=== PATIENT | male | born 1965 | race Caucasian/White ===

== ENCOUNTER 2020-09-21 14:30 | Observation (INO) | payer BC ==
--- NOTE | 2020-09-21 14:54 | RAD REPORT ---
EXAM DESCRIPTION: CT - Ct Stroke Brain Wo Cont - 09/21/2020 2:47 pm CLINICAL HISTORY: NUMBNESS, left-sided weakness, left-sided facial droop COMPARISON: No comparisons TECHNIQUE: Axial 5 millimeter thick images of the head were obtained without IV contrast. All CT scans are performed using dose optimization technique as appropriate and may include automated exposure control or mA/KV adjustment according to patient size. FINDINGS: No intracranial hemorrhage, mass, or cerebral edema. No acute cortical based infarction id entified. No cortical edema or sulcal effacement. Patient has no measurable atrophy or chronic ischem ic change. Ventricles are normal. No extra-axial fluid collections. Yin matter-white matter differe ntiation is preserved. Visualized portions of the mastoid air cells, paranasal sinuses, and orbits are unremarkable. Findings telephoned to Dr. King 2:49 p.m. IMPRESSION: No CT evidence of acute intracranial process. Ongoing concerns for acute CVA can be further addressed with MR imaging.
[2020-09-21 15:18] LABS: Hematocrit 42.3 % (39.6-49.0); Lymphocytes % 16.9 % (15.3-44.8); MPV 9.2 fL (7.6-11.3); RBC Red Blood Cell Count 4.69 M/uL (4.33-5.43)
[2020-09-21] MEDS ORDERED: ALTEPLASE 100 ML IV ONE (15:28)
[2020-09-21 15:30] LABS: Protime INR 0.84
[2020-09-21 15:33] LABS: Potassium 4.4 mmol/L (3.5-5.1)
--- NOTE | 2020-09-21 16:10 | ER ---
Nurse's Notes [facility] Name: Abhay Smith Age: 55 yrs Sex: Male : 1965 Arrival Date: 09/21/2020 Time: 14:31 Bed 7 Private MD: Diagnosis: Acute cerebrovascular insufficiency;Acute CVA Presentation: 09/21 14:37 Chief complaint: Patient states: Numbness of L arm and L side of face. Onset at 1200 ca1 today. Coronavirus screen: Client denies travel out of the [place] in the last 14 days. At this time, the client does not indicate any symptoms associated with coronavirus-19. Ebola Screen: Patient negative for fever greater than or equal to 101.5 degrees Fahrenheit, and additional compatible Ebola Virus Disease symptoms Patient denies exposure to infectious person. Patient denies travel to an Ebola-affected area in the 21 days before illness onset. No symptoms or risks identified at this time. No acute neurological deficit is noted. The patients blood glucose was checked before arriving to the hospital and was found to be normal. Initial Sepsis Screen: Does the patient meet any 2 criteria? No. Patient's initial sepsis screen is negative. Does the patient have a suspected source of infection? No. Patient's initial sepsis screen is negative. Risk Assessment: Do you want to hurt yourself or someone else? Patient reports no desire to harm self or others. Onset of symptoms was September 21, 2020 at 12:00. 14:37 Acuity: MARIBEL 2 ca1 14:37 Method Of Arrival: Wheelchair ca1 Triage Assessment: 15:00 The onset of the patients symptoms was September 21, 2020 at 12:00. General: Appears in no ca1 apparent distress. comfortable, Behavior is calm, cooperative, appropriate for age. Pain: Denies pain. EENT: No signs and/or symptoms were reported regarding the EENT system. Neuro: Level of Consciousness is awake, alert, obeys commands, Oriented to person, place, time, situation, Director Of Music Therapy are equal bilaterally Moves all extremities. Gait is steady, Speech is normal, Facial symmetry appears normal, Numbness in L side of face. Neuro: Reports numbness in left arm. Cardiovascular: Heart tones S1 S2 present Capillary refill < 3 seconds Patient's skin is warm and dry. Rhythm is sinus rhythm. 15:00 Respiratory: Airway is patent Respiratory effort is even, unlabored, Respiratory ca1 pattern is regular, symmetrical, Breath sounds are clear bilaterally. GI: Abdomen is round non-distended, Bowel sounds present X 4 quads. Abd is soft and non tender X 4 quads. : No signs and/or symptoms were reported regarding the genitourinary system. Derm: Skin is intact, is healthy with good turgor, Skin is pink, warm \T\ dry. Musculoskeletal: Circulation, motion, and sensation intact. Capillary refill < 3 seconds. Stroke Activation: Symptom onset < 3 hours Physician: Stroke Attending; Name: ; Notified At: ; Arrived At: Physician: Chief Stroke Resident; Name: ; Notified At: ; Arrived At: Physician: Stroke Resident; Name: ; Notified At: ; Arrived At: Physician: ED Attending; Name: ; Notified At: ; Arrived At: Physician: ED Resident; Name: ; Notified At: ; Arrived At: Historical: - Allergies: 15:49 PENICILLINS; em - Home Meds: 15:49 metformin 1,000 mg Oral tab 1 tab 2 times per day [Active]; lisinopril 20 mg Oral tab 1 em tab once daily [Active]; amlodipine 5 mg tab 1 tab once daily [Active]; metoprolol succinate 50 mg oral Tb24 1 tab once daily [Active]; simvastatin 80 mg Oral tab [Active]; glimepiride 4 mg Oral tab 1 tab once daily [Active]; pregabalin 150 mg Oral 1 cap 2 times per day [Active]; clopidogrel 75 mg oral tab 1 tab once daily [Active]; gabapentin 600 mg oral tab [Active]; isosorbide mononitrate 30 mg Oral Tb24 2 tabs once daily [Active]; Chantix 0.5 mg oral tab [Active]; aspirin 325 mg Oral TbEC 1 tab once daily [Active]; - PMHx: 15:49 Hypertension; Diabetes - NIDDM; Hyperlipidemia; em - PSHx: 15:49 Angioplasty; em - Immunization history:: Client reports receiving the 2nd dose of the Covid vaccine, Client reports receiving the 1st dose of the Covid vaccine, Pneumococcal vaccine is up to date, Flu vaccine is up to date. - Social history:: Smoking status: Patient reports the use of cigarette tobacco products, smokes one-half pack cigarettes per day. Screenin:15 Abuse screen: Denies threats or abuse. Denies injuries from another. Nutritional ca1 screening: No deficits noted. Tuberculosis screening: No symptoms or risk factors identified. Fall Risk IV access (20 points). Assessment: 14:37 Reassessment: PT wheeled to CT via wheelchair. ca1 14:55 VAN Scoring: Arm Drift: Patients demonstrates NO arm weakness. Patient is VAN Negative. ca1 15:00 Reassessment: pt signed consent form. em 15:05 T-PA (Activase) Screening: Indications: Definite evidence of stroke, ischemic, embolic, em or hypertensive: Yes. Treatment will start within 4.5 hours onset of symptoms: Yes. No evidence of intracranial hemorrhage or CT of head and no evidence of peripheral hemorrhage or recent CVA: Yes. Consent for thrombolytic therapy: Yes. 15:06 Patient has been NPO before screening. The patient is alert, and able to follow ca1 commands. The patient does not exhibit slurred or garbled speech. The patient is not exhibiting difficulty speaking. The patient does not exhibit difficulty understanding words. The patient is able to swallow own secretions with no drooling or need for suction. Patient tolerated one teaspoon of water. No drooling, immediate coughing, gurgling, or clearing of the throat was noted. The patient tolerated 90mL of water. No drooling, immediate coughing, gurgling, or clearing of the throat was noted. The patient passed the bedside swallow screening. Oral medications may be given as ordered. Contact Physician for further diet orders. Provider notified of bedside swallow screening results: Joel King MD. 15:10 General: Appears in no apparent distress. comfortable, Behavior is calm, cooperative. em Pain: Denies pain. Neuro: Level of Consciousness is awake, alert, obeys commands, Oriented to person, place, time, situation, Appropriate for age Director Of Music Therapy are equal bilaterally Moves all extremities. Gait is steady, Speech is normal, Facial symmetry appears normal, Numbness in left jaw and left arm Denies weakness dizziness, headache. Cardiovascular: Capillary refill < 3 seconds Patient's skin is warm and dry. Rhythm is sinus rhythm. Respiratory: Airway is patent Respiratory effort is even, unlabored, Respiratory pattern is regular, symmetrical. GI: Patient currently denies nausea, vomiting. Derm: Skin is intact, is healthy with good turgor, Skin is pink, warm \T\ dry. Musculoskeletal: Capillary refill < 3 seconds, Range of motion: intact in all extremities. 15:50 Reassessment: reports numbness in fingers and lips is getting better, provider at em bedside. 17:01 Reassessment: pt ambulated to the restroom with steady gait. em 17:04 Reassessment: hospitalist at bedside. em 17:50 Reassessment: Patient appears in no apparent distress at this time. Patient and/or em family updated on plan of care and expected duration. Pain level reassessed. denies any numbness or tingling in face or arms Patient states symptoms have improved. 18:50 Reassessment: Patient appears in no apparent distress at this time. Patient and/or em family updated on plan of care and expected duration. Pain level reassessed. Patient is alert, oriented x 3, equal unlabored respirations, skin warm/dry/pink. Vital Signs: 14:49 BP 177 / 89; Pulse 79; Resp 16 S; Pulse Ox 100% on R/A; ca1 15:06 Weight 126.1 kg; em 15:20 BP 144 / 85; Pulse 79; Resp 18; Pulse Ox 99% on R/A; em 16:20 BP 148 / 90; Pulse 85; Resp 18; Pulse Ox 99% on R/A; em 17:05 BP 154 / 81; Pulse 78; Resp 16; Pulse Ox 97% on R/A; em 17:50 BP 176 / 91; Pulse 81; Resp 18; Temp 97.8; Pulse Ox 99% on R/A; em 18:50 BP 131 / 82; Pulse 79; Resp 16; Pulse Ox 98% on R/A; em NIH Stroke Scale Scores: 15:10 NIHSS Score: 2 em 15:50 NIHSS Score: 1 em 16:17 NIHSS Score: 3 tw4 ED Course: 14:31 Patient arrived in ED. ds1 14:37 Arm band placed on right wrist. ca1 14:38 Deniz Hazel, YESSENIA is Primary Nurse. em 14:44 Joel King MD is Attending Physician. tw4 14:47 CT Stroke Brain w/o Contrast In Process Unspecified. EDMS 14:47 Patient has correct armband on for positive identification. Placed in gown. Bed in low ca1 position. Call light in reach. Side rails up X2. 14:47 cardiac monitor technician on. Pulse ox on. NIBP on. Warm blanket given. ca1 14:55 Missed attempt(s): 20 gauge in right forearm. Bleeding controlled, band aid applied, ca1 catheter tip intact. 14:57 Inserted saline lock: 22 gauge in right hand, using aseptic technique. ,using aseptic ca1 technique. by YESSENIA Guaman Blood collected. 15:00 Inserted saline lock: 22 gauge in left antecubital area, using aseptic technique. ca1 15:28 Triage completed. ca1 15:33 No provider procedures requiring assistance completed. ca1 15:46 Stroke CXR 1 View In Process Unspecified. EDMS 16:09 Nick Pineda is Hospitalizing Provider. tw4 19:30 Patient admitted, IV remains in place. ad5 Administered Medications: 15:23 Drug: ACTIvase (alteplase) {Co-Signature: ca1 (Sahra Kelsey RN).} Route: IV em Thrombolytics; Rate: calculated rate; Infused Over: 60 mins; 16:28 Follow up: Response: No adverse reaction em Point of Care Testing: Blood Glucose: 14:47 Blood Glucose: 378 mg/dL; ca1 Ranges: Outcome: 16:10 Decision to Hospitalize by Provider. tw4 19:30 Admitted to ER Hold. Please see [email or web address] for further documentation. ad5 19:30 Condition: stable 19:30 Instructed on the need for admit, Demonstrated understanding of instructions. 0603 15:22 Patient left the ED. em NIH Stroke Scale - NIH Stroke Score Date: 09/21/2020 Time: 15:10 Total Score = 2 1a. Level of Consciousness (LOC) - 0(Alert) 1b. Level of Consciousness (LOC) (Year \T\ Age) - 0(Both) 1c. LOC Commands (Open \T\ Closes Eyes/Pick Up Operator) - 0(Both) 2. Best Gaze (Lateral Gaze Paresis) - 0(Normal) 3. Visual Field Loss - 0(No visual loss) 4. Facial Palsy - 0(Normal) 5a. Left Arm: Motor (10-second hold) - 0(No drift) 5b. Right Arm: Motor (10-second hold) - 0(No drift) 6a. Left Leg: Motor (5-second hold - always test supine) - 1(Drift) 6b. Right Leg: Motor (5-second hold - always test supine) - 0(No drift) 7. Limb Ataxia (finger/nose \T\ heel/quinn - test with eyes open) - 0(Absent) 8. Sensory Loss (pinprick arms/legs/face) - 1(Mild to moderate loss) 9. Best Language: Aphasia (description/naming/reading) - 0(No aphasia) 10. Dysarthria (speech clarity - read or repeat words) - 0(Normal) 11. Extinction and Inattention (visual/tactile/auditory/spatial/personal) - 0(No abnormality) Initials: NIH Stroke Scale - NIH Stroke Score Date: 09/21/2020 Time: 15:50 Total Score = 1 1a. Level of Consciousness (LOC) - 0(Alert) 1b. Level of Consciousness (LOC) (Year \T\ Age) - 0(Both) 1c. LOC Commands (Open \T\ Closes Eyes/Pick Up Operator) - 0(Both) 2. Best Gaze (Lateral Gaze Paresis) - 0(Normal) 3. Visual Field Loss - 0(No visual loss) 4. Facial Palsy - 0(Normal) 5a. Left Arm: Motor (10-second hold) - 0(No drift) 5b. Right Arm: Motor (10-second hold) - 0(No drift) 6a. Left Leg: Motor (5-second hold - always test supine) - 0(No drift) 6b. Right Leg: Motor (5-second hold - always test supine) - 0(No drift) 7. Limb Ataxia (finger/nose \T\ heel/quinn - test with eyes open) - 0(Absent) 8. Sensory Loss (pinprick arms/legs/face) - 1(Mild to moderate loss) 9. Best Language: Aphasia (description/naming/reading) - 0(No aphasia) 10. Dysarthria (speech clarity - read or repeat words) - 0(Normal) 11. Extinction and Inattention (visual/tactile/auditory/spatial/personal) - 0(No abnormality) Initials: NIH Stroke Scale - NIH Stroke Score Date: 09/21/2020 Time: 16:17 Total Score = 3 1a. Level of Consciousness (LOC) - 0(Alert) 1b. Level of Consciousness (LOC) (Year \T\ Age) - 0(Both) 1c. LOC Commands (Open \T\ Closes Eyes/Pick Up Operator) - 0(Both) 2. Best Gaze (Lateral Gaze Paresis) - 0(Normal) 3. Visual Field Loss - 0(No visual loss) 4. Facial Palsy - 0(Normal) 5a. Left Arm: Motor (10-second hold) - 0(No drift) 5b. Right Arm: Motor (10-second hold) - 0(No drift) 6a. Left Leg: Motor (5-second hold - always test supine) - 2(Drift, some effort against gravity) 6b. Right Leg: Motor (5-second hold - always test supine) - 0(No drift) 7. Limb Ataxia (finger/nose \T\ heel/quinn - test with eyes open) - 0(Absent) 8. Sensory Loss (pinprick arms/legs/face) - 1(Mild to moderate loss) 9. Best Language: Aphasia (description/naming/reading) - 0(No aphasia) 10. Dysarthria (speech clarity - read or repeat words) - 0(Normal) 11. Extinction and Inattention (visual/tactile/auditory/spatial/personal) - 0(No abnormality) Initials: tw4 Signatures: Dispatcher [employer] EDDeniz Benton RN RN em Kiana Gtz ds1 Joel King MD MD tw4 Sahra Kelsey RN RN ca1 Dany Oliveira RN ca1 Corrections: (The following items were deleted from the chart) 0602 15:32 15:30 BP 177 / 89; Pulse 79bpm; Resp 16bpm; Spontaneous; Pulse Ox 100% RA; ca1 ca1 15:49 15:28 Allergies: No Known Allergies; ca1 em
--- NOTE | 2020-09-21 16:10 | EDPHYS ---
Physician Documentation [facility] Name: Abhay Smith Age: 55 yrs Sex: Male : 1965 Arrival Date: 09/21/2020 Time: 14:31 Bed 7 Private MD: ED Physician Joel King HPI: 09/21 16:16 This 55 yrs old Male presents to ER via Wheelchair with complaints of tw4 Numbness - L Side. 16:16 The patient's problem is reported as paresthesias, in left upper extremity, in left tw4 lower extremity. Onset: The symptoms/episode began/occurred today. Duration: This was a single incident. Context: the episode(s) was witnessed, by no one. The symptoms are alleviated by nothing. The symptoms are aggravated by nothing. Associated signs and symptoms: The patient has no apparent associated signs or symptoms. Severity of symptoms: At their worst the symptoms were moderate in the emergency department the symptoms are unchanged. The patient has not experienced similar symptoms in the past. 16:17 Onset: The symptoms/episode began/occurred 2 hour(s) ago. Patient's baseline: Neuro: tw4 alert and fully oriented, Motor: no deficits, Ambulation: walks without assistance, Speech: normal. Historical: - Allergies: 15:49 PENICILLINS; em - Home Meds: 15:49 metformin 1,000 mg Oral tab 1 tab 2 times per day [Active]; lisinopril 20 mg Oral tab 1 em tab once daily [Active]; amlodipine 5 mg tab 1 tab once daily [Active]; metoprolol succinate 50 mg oral Tb24 1 tab once daily [Active]; simvastatin 80 mg Oral tab [Active]; glimepiride 4 mg Oral tab 1 tab once daily [Active]; pregabalin 150 mg Oral 1 cap 2 times per day [Active]; clopidogrel 75 mg oral tab 1 tab once daily [Active]; gabapentin 600 mg oral tab [Active]; isosorbide mononitrate 30 mg Oral Tb24 2 tabs once daily [Active]; Chantix 0.5 mg oral tab [Active]; aspirin 325 mg Oral TbEC 1 tab once daily [Active]; - PMHx: 15:49 Hypertension; Diabetes - NIDDM; Hyperlipidemia; em - PSHx: 15:49 Angioplasty; em - Immunization history:: Client reports receiving the 2nd dose of the Covid vaccine, Client reports receiving the 1st dose of the Covid vaccine, Pneumococcal vaccine is up to date, Flu vaccine is up to date. - Social history:: Smoking status: Patient reports the use of cigarette tobacco products, smokes one-half pack cigarettes per day. ROS: 16:16 Constitutional: Negative for fever, chills, and weight loss. tw4 Exam: 16:17 Radiologist reports: no acute changes tw4 16:17 Constitutional: This is a well developed, well nourished patient who is awake, alert, and in no acute distress. Head/Face: Normocephalic, atraumatic. Neck: Trachea midline, no thyromegaly or masses palpated, and no cervical lymphadenopathy. Supple, full range of motion without nuchal rigidity, or vertebral point tenderness. No Meningismus. Chest/axilla: Normal chest wall appearance and motion. Nontender with no deformity. No lesions are appreciated. Cardiovascular: Regular rate and rhythm with a normal S1 and S2. No gallops, murmurs, or rubs. Normal PMI, no JVD. No pulse deficits. Respiratory: Lungs have equal breath sounds bilaterally, clear to auscultation and percussion. No rales, rhonchi or wheezes noted. No increased work of breathing, no retractions or nasal flaring. Abdomen/GI: Soft, non-tender, with normal bowel sounds. No distension or tympany. No guarding or rebound. No evidence of tenderness throughout. Back: No spinal tenderness. No costovertebral tenderness. Full range of motion. Skin: Warm, dry with normal turgor. Normal color with no rashes, no lesions, and no evidence of cellulitis. MS/ Extremity: Pulses equal, no cyanosis. Neurovascular intact. Full, normal range of motion. 16:17 Neuro: Orientation: is normal, Mentation: is normal, Memory: is normal, Cerebellar function: is grossly normal, Motor: is normal, Sensation: numbness, that is moderate, of the face and left arm, Gait: is steady. Vital Signs: 14:49 BP 177 / 89; Pulse 79; Resp 16 S; Pulse Ox 100% on R/A; ca1 15:06 Weight 126.1 kg; em 15:20 BP 144 / 85; Pulse 79; Resp 18; Pulse Ox 99% on R/A; em 16:20 BP 148 / 90; Pulse 85; Resp 18; Pulse Ox 99% on R/A; em 17:05 BP 154 / 81; Pulse 78; Resp 16; Pulse Ox 97% on R/A; em 17:50 BP 176 / 91; Pulse 81; Resp 18; Temp 97.8; Pulse Ox 99% on R/A; em 18:50 BP 131 / 82; Pulse 79; Resp 16; Pulse Ox 98% on R/A; em NIH Stroke Scale Scores: 15:10 NIHSS Score: 2 em 15:50 NIHSS Score: 1 em 16:17 NIHSS Score: 3 tw4 MDM: 14:44 Patient medically screened. tw4 16:20 Differential diagnosis: CVA, TIA, metabolic disorder, drug effects. Data reviewed: tw4 vital signs, nurses notes. Data interpreted: Pulse oximetry: Interpretation: normal. Test interpretation: by ED physician or midlevel provider: plain radiologic studies. Counseling: I had a detailed discussion with the patient and/or guardian regarding: the historical points, exam findings, and any diagnostic results supporting the discharge/admit diagnosis, lab results, radiology results. Physician consultation: Nick Pineda regarding admission, to the telemetry unit. patient's condition, and will see patient. 09/21 14:39 Order name: Basic Metabolic Panel em1 09/21 14:39 Order name: CBC with Diff em1 09/21 14:39 Order name: Protime (+inr) em1 09/21 14:39 Order name: Ptt, Activated em1 09/21 15:17 Order name: Glucose, Ancillary Testing EDKS 09/21 16:48 Order name: Vitamin B12 Level EDKS 09/21 16:48 Order name: Basic Metabolic Panel EDKS 09/21 16:48 Order name: Basic Metabolic Panel EDKS 09/21 16:48 Order name: Folic Acid, (Folate) EDKS 09/21 16:48 Order name: RPR EDKS 09/21 16:48 Order name: Vitamin D, 25 (OH), TOTAL EDKS 09/21 16:48 Order name: CBC with Automated Diff EDMS 09/21 16:48 Order name: CBC with Automated Diff EDMS 09/21 16:48 Order name: Protime (+INR) EDKS 09/21 16:48 Order name: Protime (+INR) EDMS 09/21 16:48 Order name: Protime (+INR) EDMS 09/21 16:48 Order name: Protime (+INR) EDMS 09/21 16:48 Order name: Protime (+INR) EDMS 09/21 16:48 Order name: Protime (+INR) EDMS 09/21 16:48 Order name: Anti-Thrombin III Activity EDMS 09/21 16:48 Order name: C-ANCA Anti-Proteinase 3 EDMS 09/21 16:48 Order name: Cardiolipin Antibodies G,M EDMS 09/21 16:48 Order name: Factor V Leiden Mutation EDMS 09/21 16:48 Order name: Homocysteine EDMS 09/21 16:48 Order name: Miscellaneous Test Lab EDMS 09/21 14:39 Order name: CT Stroke Brain w/o Contrast em1 09/21 14:39 Order name: Stroke CXR 1 View em1 09/21 14:39 Order name: EKG; Complete Time: 14:40 em1 09/21 14:39 Order name: Accucheck; Complete Time: 15:33 em1 09/21 14:39 Order name: EKG; Complete Time: 14:40 em 09/21 16:47 Order name: NPO EDMS 09/21 16:48 Order name: Physical Therapy Consult EDMS 09/21 16:48 Order name: NPO EDMS 09/21 16:48 Order name: NPO EDMS 09/21 16:48 Order name: Echo with Doppler EDMS 09/21 16:48 Order name: EKG Electrocardiogram EDMS 09/21 16:48 Order name: P-ANCA Anti-Myeloperoxidase Ab EDMS 09/21 16:48 Order name: Protein C Antigen EDMS 09/21 16:48 Order name: Protein Electo w/M Justino Serum EDMS 09/21 16:48 Order name: Protein S (Total EDMS 09/21 16:48 Order name: PROTHROMBIN GENE ANALYSIS (F2) EDMS 09/21 16:49 Order name: Speech Therapy Consult EDMS 09/21 17:04 Order name: Diet Regular; Complete Time: 17:04 em 09/21 17:43 Order name: SARS-COV-2 RT PCR EDMS 09/21 17:49 Order name: Brain Wo Cont EDMS 09/21 22:01 Order name: Glucose, Ancillary Testing EDMS 09/21 23:40 Order name: Glucose, Ancillary Testing EDMS 09/22 01:51 Order name: Glucose, Ancillary Testing EDMS 09/22 07:31 Order name: Hemoglobin A1c EDMS 09/22 07:58 Order name: Glucose, Ancillary Testing EDMS 09/22 11:51 Order name: Glucose, Ancillary Testing EDMS 09/22 13:46 Order name: CT EDMS 09/21 14:39 Order name: Cardiac monitoring; Complete Time: 15:33 em1 09/21 14:39 Order name: EKG - Nurse/Tech; Complete Time: 15:33 em1 09/21 14:39 Order name: IV Saline Lock; Complete Time: 15:34 em1 09/21 14:39 Order name: Labs collected and sent; Complete Time: 15:34 em1 09/21 14:39 Order name: NPO; Complete Time: 15:34 em1 09/21 14:39 Order name: O2 Per Protocol; Complete Time: 15:34 em1 09/21 14:39 Order name: O2 Sat Monitoring; Complete Time: 15:34 em1 09/21 14:39 Order name: Stroke Swallow Screen; Complete Time: 15:33 em1 09/21 14:39 Order name: Accucheck; Complete Time: 15:13 em 09/21 14:39 Order name: Cardiac monitoring; Complete Time: 15:13 em 09/21 14:39 Order name: EKG - Nurse/Tech; Complete Time: 15:13 em 09/21 14:39 Order name: IV Saline Lock; Complete Time: 15:13 em 09/21 14:39 Order name: Labs collected and sent; Complete Time: 15:13 em 09/21 14:39 Order name: NPO; Complete Time: 15:13 em 09/21 14:39 Order name: O2 Per Protocol; Complete Time: 15:13 em 09/21 14:39 Order name: O2 Sat Monitoring; Complete Time: 15:13 em 09/21 14:39 Order name: Stroke Swallow Screen; Complete Time: 15:13 em Administered Medications: 15:23 Drug: ACTIvase (alteplase) {Co-Signature: ca1 (Sahra Kelsey RN).} Route: IV em Thrombolytics; Rate: calculated rate; Infused Over: 60 mins; 16:28 Follow up: Response: No adverse reaction em Point of Care Testing: Blood Glucose: 14:47 Blood Glucose: 378 mg/dL; ca1 Ranges: Critical Glucose Levels:Adult <50 mg/dl or >400 mg/dl <40 mg/dl or >180 mg/dl Disposition: 09/21/20 16:10 Hospitalization ordered by Nick Pineda for Inpatient Admission. Preliminary diagnosis are Acute cerebrovascular insufficiency, Acute CVA. - Bed requested for [facility] ER HOLD. - Status is Inpatient Admission. em - Condition is Stable. - Problem is new. - Symptoms have improved. NIH Stroke Scale - NIH Stroke Score Date: 09/21/2020 Time: 15:10 Total Score = 2 1a. Level of Consciousness (LOC) - 0(Alert) 1b. Level of Consciousness (LOC) (Year \T\ Age) - 0(Both) 1c. LOC Commands (Open \T\ Closes Eyes/Dining Room Busser) - 0(Both) 2. Best Gaze (Lateral Gaze Paresis) - 0(Normal) 3. Visual Field Loss - 0(No visual loss) 4. Facial Palsy - 0(Normal) 5a. Left Arm: Motor (10-second hold) - 0(No drift) 5b. Right Arm: Motor (10-second hold) - 0(No drift) 6a. Left Leg: Motor (5-second hold - always test supine) - 1(Drift) 6b. Right Leg: Motor (5-second hold - always test supine) - 0(No drift) 7. Limb Ataxia (finger/nose \T\ heel/quinn - test with eyes open) - 0(Absent) 8. Sensory Loss (pinprick arms/legs/face) - 1(Mild to moderate loss) 9. Best Language: Aphasia (description/naming/reading) - 0(No aphasia) 10. Dysarthria (speech clarity - read or repeat words) - 0(Normal) 11. Extinction and Inattention (visual/tactile/auditory/spatial/personal) - 0(No abnormality) Initials: em NIH Stroke Scale - NIH Stroke Score Date: 09/21/2020 Time: 15:50 Total Score = 1 1a. Level of Consciousness (LOC) - 0(Alert) 1b. Level of Consciousness (LOC) (Year \T\ Age) - 0(Both) 1c. LOC Commands (Open \T\ Closes Eyes/Dining Room Busser) - 0(Both) 2. Best Gaze (Lateral Gaze Paresis) - 0(Normal) 3. Visual Field Loss - 0(No visual loss) 4. Facial Palsy - 0(Normal) 5a. Left Arm: Motor (10-second hold) - 0(No drift) 5b. Right Arm: Motor (10-second hold) - 0(No drift) 6a. Left Leg: Motor (5-second hold - always test supine) - 0(No drift) 6b. Right Leg: Motor (5-second hold - always test supine) - 0(No drift) 7. Limb Ataxia (finger/nose \T\ heel/quinn - test with eyes open) - 0(Absent) 8. Sensory Loss (pinprick arms/legs/face) - 1(Mild to moderate loss) 9. Best Language: Aphasia (description/naming/reading) - 0(No aphasia) 10. Dysarthria (speech clarity - read or repeat words) - 0(Normal) 11. Extinction and Inattention (visual/tactile/auditory/spatial/personal) - 0(No abnormality) Initials: NIH Stroke Scale - NIH Stroke Score Date: 09/21/2020 Time: 16:17 Total Score = 3 1a. Level of Consciousness (LOC) - 0(Alert) 1b. Level of Consciousness (LOC) (Year \T\ Age) - 0(Both) 1c. LOC Commands (Open \T\ Closes Eyes/Dining Room Busser) - 0(Both) 2. Best Gaze (Lateral Gaze Paresis) - 0(Normal) 3. Visual Field Loss - 0(No visual loss) 4. Facial Palsy - 0(Normal) 5a. Left Arm: Motor (10-second hold) - 0(No drift) 5b. Right Arm: Motor (10-second hold) - 0(No drift) 6a. Left Leg: Motor (5-second hold - always test supine) - 2(Drift, some effort against gravity) 6b. Right Leg: Motor (5-second hold - always test supine) - 0(No drift) 7. Limb Ataxia (finger/nose \T\ heel/quinn - test with eyes open) - 0(Absent) 8. Sensory Loss (pinprick arms/legs/face) - 1(Mild to moderate loss) 9. Best Language: Aphasia (description/naming/reading) - 0(No aphasia) 10. Dysarthria (speech clarity - read or repeat words) - 0(Normal) 11. Extinction and Inattention (visual/tactile/auditory/spatial/personal) - 0(No abnormality) Initials: tw4 Signatures: Dispatcher [employer] EDMS Deniz Hazel, RN RN em Akil, Pedro em1 Janine Dobbs RN RN tl1 Joel King MD MD tw4 Sahra Kelsey RN RN ca1 Sahra Kelsey RN ca1 Corrections: (The following items were deleted from the chart) 14:40 14:40 BASIC METABOLIC PANEL+C.LAB.BRZ ordered. EDMS EDMS 14:40 14:40 CBC+H.LAB.BRZ ordered. EDMS EDMS 14:41 14:40 PROTIME (+INR)+COAG.LAB.BRZ ordered. EDMS EDMS 14:41 14:40 PTT, ACTIVATED+COAG.LAB.BRZ ordered. EDMS EDMS 14:47 14:40 CT-STROKE BRAIN W/O CONTRAST+CT.RAD.BRZ ordered. EDMS EDMS 15:00 14:40 Chest Single View+RAD.RAD.BRZ ordered. EDMS EDMS 15:49 15:28 Allergies: No Known Allergies; ca1 em 17:02 16:06 CORONAVIRUS+MR.LAB.BRZ ordered. EDKS EDMS 17:13 16:48 Chest Pa And Lat (2 Views) ordered. EDMS EDMS 17:49 17:45 Head Brain Wo Cont ordered. EDKS EDMS 19:06 16:10 Hospitalization Ordered by Nick Pineda for Inpatient Admission. tl1 Preliminary diagnosis is Acute cerebrovascular insufficiency; Acute CVA. Bed requested for Telemetry/MedSurg (Inpatient). Status is Inpatient Admission. Condition is Stable. Problem is new. Symptoms have improved. tw4 09/22 15:22 06/02 19:06 09/21/2020 16:10 Hospitalization Ordered by Nick Pineda for em Inpatient Admission. Preliminary diagnosis is Acute cerebrovascular insufficiency; Acute CVA. Bed requested for [facility] ER HOLD. Status is Inpatient Admission. Condition is Stable. Problem is new. Symptoms have improved. tl1
[2020-09-21] MEDS ORDERED: ONDANSETRON 4 MG/2 ML VIAL IV PRN (16:36)
[2020-09-21] MEDS ORDERED: ACETAMINOPHEN 650MG/RECT SUPP PR PRN (16:36)
--- NOTE | 2020-09-21 16:53 | P.HP ---
Certification for Inpatient With expected LOS: >2 Midnights Patient will require the following post-hospital care: None Practitioner: I am a practitioner with admitting privileges, knowledge of patient current condition, hospital course, and medical plan of care. Services: Services provided to patient in accordance with Admission requirements found in Title 42 Section 412.3 of the Code of Federal Regulations Patient History Date of Service: 09/21/20 Reason for admission: Left facial\arm Numbness\Tingling History of Present Illness: Patient is a 55-year-old male with a past medical history significant for hypertension, DM 2, HLD, CAD with stents who presents with complaint of left facial\arm numbness and tingling onset this afternoon while at work. Patient reports associated signs and symptoms of left arm weakness, vision change, dizziness and lightheadedness. Patient denies any other signs and symptoms. Symptoms are aggravated or relieved by nothing. Patient decided to present to the hospital for medical evaluation - Past Medical/Surgical History -: CAD with stents -: HLD -: HTN -: DM 2 with Neuropathy - Social History Smoking Status: Current every day smoker Smoking therapy provided: Yes Patient receptive to therapy: Yes Alcohol use: Yes CD- Drugs: No Caffeine use: Yes Place of Residence: Home Review of Systems General: Weakness Eyes: Vision Change ENT: Unremarkable Respiratory: Unremarkable Cardiovascular: Unremarkable Gastrointestinal: Unremarkable Genitourinary: Unremarkable Musculoskeletal: Unremarkable Integumentary: Unremarkable Neurological: Weakness, Numbness, Other (Left arm\facial numbness ) Physical Examination - Physical Exam General: Alert, Oriented x3 HEENT: Atraumatic, PERRLA, Mucous membr. moist/pink, EOMI, Sclerae nonicteric Neck: Supple, 2+ carotid pulse no bruit, No LAD, Without JVD or thyroid abnormality Respiratory: Clear to auscultation bilaterally, Normal air movement Cardiovascular: Regular rate/rhythm, Normal S1 S2 Capillary refill: <2 Seconds Gastrointestinal: Normal bowel sounds, No tenderness Musculoskeletal: No clubbing, No tenderness Integumentary: No rashes Neurological: Normal gait, Normal speech, Normal tone, Normal affect Lymphatics: No axilla or inguinal lymphadenopathy External genitalia: Deferred Rectal: Deferred - Studies Laboratory Data (last 24 hrs) 09/21/20 15:04: PT 9.6, INR 0.84, APTT 30.0 09/21/20 15:04: WBC 11.80 H, Hgb 14.6, Hct 42.3, Plt Count 198 09/21/20 15:04: Sodium 134 L, Potassium 4.4, BUN 47 H, Creatinine 2.44 H, Glucose 346 H Assessment and Plan - Plan --Suspected CVA. CT head unremarkable for any intracranial abnormality. Patient received t-PA in the ER. Neurology consulted. MRI brain pending. Will await further recommendations from neurologist. --DM 2 with neuropathy. BS monitoring with sliding scale insulin. Continue home medication for his neuropathy. --Hypertension. Will allow for permissive hypertension pending evaluation by a neurologist. Labetalol p.r.n. SBP greater than 200. Will await further recommendations from neurologist. --History of CAD with stents. Continue statin. --HLD. Continue statin. --Nicotine dependence . Patient counseled on tobacco cessation placed and placed on nicotine patch. --Obesity. Likely secondary to excess calories intake. Patient counseled on diet and exercise therapy. --DVT prophylaxis with SCDs. Discharge Plan: Home Plan to discharge in: 48 Hours - Advance Directives Does patient have a Living Will: Yes Does patient have a Durable POA for Healthcare: No - Code Status/Comfort Care Code Status Assessed: Yes Code Status: Full Code Critical Care: No
--- NOTE | 2020-09-21 17:28 | RAD REPORT ---
EXAM DESCRIPTION: RAD - Chest Single View - 09/21/2020 3:46 pm CLINICAL HISTORY: stroke COMPARISON: None TECHNIQUE: AP portable chest image was obtained 09/21/2020 3:46 pm . FINDINGS: Lungs are clear. Interstitial markings are mildly prominent believed be baseline. Heart an d vasculature are normal. No measurable pleural effusion and no pneumothorax. No acute bony abnormali ty seen. No acute aortic findings suspected. IMPRESSION: No acute cardiopulmonary process.
[2020-09-21] MEDS ORDERED: LABETALOL 20 MG/4ML SYRINGE IV PRN ×2 (18:09→18:21)
[2020-09-21 19:18] LABS: Folic Acid, (Folate) 19.8 ng/mL (3.1-17.5)
[2020-09-21] MEDS ORDERED: LORAZEPAM 0.5 MG TABLET PO ONE (19:23)
--- OUTSIDE RECORDS SUMMARY | 2020-09-21 19:40 | XMS REPORT | Continuity of Care Document ---
:1965 Author Organization [facility] t Address [address] [place] [address] Care Team Providers Name Role Phone Doctor Unassigned, Name Attending Clinician Unavailable Maral CARVALHO Attending Clinician Payers Payer Name Policy Type Policy Number Effective Date Expiration Date S ource Problems This patient has no known problems. Allergies, Adverse Reactions, Alerts Allergy Allergy Status Severity Reaction(s) Onset Inactive Treating Comm ents Source Name Type Date Date Clinician No Known DA Active U [facility] Allergie 06-23 Clear s 00:00: No 00 [facility] Medications This patient has no known medications. Procedures This patient has no known procedures. Encounters Start End Encounter Admission Attending Care Care Encounter Source Date/Time Date/Time Type Type Clinicians Facility Department ID 2020-09-16 2020-09-16 Orders Doctor NADINE [id number] 00:00:00 00:00:00 Only Unassigned, DOMINOG [id number] [place] [facility] [id number] 2020-09-12 2020-09-12 [facility] [id number] 07:28:18 23:59:00 Encounter ar, Health [id number] [place] [id number] [place] [id number] [place] [address] ([facility]) Results Test Description Test Time Test Comments Results Result [facility] e Comments - XR TIBIA/FIBULA 2019-06-24 FAX: 2 V RT 10:12:00 Erickson Urbano MD [phone] [place]: St: PRE Name: MARTÍN CARNEY [place] FSED : 1965 Age/S: 54/M Unit #: [id number] Loc: [place] Phys: Erickson Urbano MD Acct: [id number] Dis Date: Status: PRE ER PHONE #: Exam Date: 06/24/2019 1002 FAX #: Reason: right lower leg injury / swelling / pain EXAMS: CPT CODE: [id number] XR TIBIA/FIBULA 2 [place] [id number] Right leg 2 views 06/24/2019 HISTORY: Wound to right quinn FINDINGS: Soft tissue swelling is noted. No radiopaque foreign body is identified. Soft tissue gas is noted. There is no fracture identified involving the right tibia or fibula. No periosteal reaction is noted. IMPRESSION: 1. Soft tissue gas may represent abscess. 2. No abnormality involving right tibia or fibula. No fracture or radiographic evidence for osteomyelitis. 3. No radiopaque foreign body. SL: [id number] at 1012 Reported and signed by: Christopher Allan M.D. CC: Erickson Urbano MD Technologist: Negin Ernst RT(R) Trnscrd Date/Time/By: 06/24/2019 (101) : By: [email or web address] Orig Print D/T: S: 06/24/2019 (1015) PAGE 1 Signed Report
[2020-09-21] MEDS ORDERED: LORAZEPAM 0.5 MG TABLET ONE (19:44)
[2020-09-21] MEDS: NA CHLORIDE 0.9% 1,000 ML IV SCH (20:18)
--- NOTE | 2020-09-21 20:19 | RAD REPORT ---
EXAM DESCRIPTION: MRI - Brain Wo Cont - 09/21/2020 8:06 pm CLINICAL HISTORY: R O CVA, left-sided face and arm numbness, visual disturbance COMPARISON: Ct Stroke Brain Wo Cont dated 09/21/2020 TECHNIQUE: Sagittal T1-weighted images were obtained along with axial PD, heavily T2-weighted and T2 -FLAIR images. Axial DWI and ADC mapping sequences were also obtained along with coronal heavily T2-w eighted images. FINDINGS: No intracranial hemorrhage is present. No mass, edema or shift of midline structures. On d iffusion-weighted imaging there is a very small punctate 1 mm focus persistent hyperintense signal at the inferior basal ganglia cerebral peduncle junction. There is a questionable correlate on the ADC mapping sequence. Patient has minimal scattered chronic ischemic type signal in the cerebral white ma tter. The possible diffusion signal abnormality would not be a an explanation for the patient's left- sided symptoms. There is no edema or shift of midline structures. No extra-axial fluid collections. Yin-matter/whit e matter junction is preserved. Signal voids are seen as a normal finding in the major intracranial v essels. No globe or orbital content abnormality. No sella or supra sella abnormality. Mastoid air cells and paranasal sinuses are clear. IMPRESSION: No intracranial hemorrhage is present. No mass, edema or shift of midline structures. Diffusion imaging shows punctate hyperintense focus at the basal ganglia left cerebral peduncle junct ion. This is a potential nonhemorrhagic infarction but would not explain the patient's left-sided sym ptoms. Mild scattered chronic ischemic change in the cerebral white matter.
[2020-09-21] MEDS ORDERED: NA CHLORIDE 0.9% 1,000 ML ONE (20:56)
[2020-09-21] MEDS ORDERED: ATORVASTATIN 40 MG TAB PO SCH (21:00)
[2020-09-21] MEDS: INSULIN -REGULAR HUMAN 50 UNIT/0.5 ML ML SQ SCH ×2 (21:55→23:30)
[2020-09-21] MEDS ORDERED: ATORVASTATIN 20 MG TAB ONE (22:15)
[2020-09-21] MEDS ORDERED: INSULIN -REGULAR HUMAN 50 UNIT/0.5 ML ML ONE ×2 (22:17→23:57)
[2020-09-21 23:32] VITALS: BMI 36.8
[2020-09-22] MEDS: METFORMIN HCL 500 MG TAB PO SCH ×2 (01:44→08:49)
[2020-09-22 05:43] LABS: Hematocrit 41.6 % (39.6-49.0); RBC Red Blood Cell Count 4.62 M/uL (4.33-5.43)
[2020-09-22 05:44] LABS: Absolute Lymphocytes (CBC) 1.5 K/uL (0.7-4.9); Basophils % 1.1 % (0-1.3); Lymphocytes % 17.1 % (15.3-44.8); MPV 9.2 fL (7.6-11.3)
[2020-09-22 05:45] LABS: Protime INR 0.89
[2020-09-22 06:06] LABS: Potassium 4.2 mmol/L (3.5-5.1)
[2020-09-22 06:08] LABS: RPR (Rapid Plasma Reagin) NON-REACT (NON-REACT)
[2020-09-22] MEDS: NA CHLORIDE 0.9% 1,000 ML IV SCH (06:20)
[2020-09-22] MEDS: INSULIN -REGULAR HUMAN 50 UNIT/0.5 ML ML SQ SCH ×2 (07:30→11:30)
[2020-09-22 07:39] VITALS: TEMP 98
--- NOTE | 2020-09-22 07:52 | EKG ---
Test Date: 2020-09-21 Test Time: 14:56:13 Telecommunications Linesworker: MOE MEASUREMENT RESULTS: Intervals: Rate: 81 OR: 188 QRSD: 98 QT: 390 QTc: 453 [place]: P: 41 OR: 188 QRS: -24 T: 86 INTERPRETIVE STATEMENTS: Normal sinus rhythm Normal ECG No previous ECG available for comparison Electronically Signed On 09-22-20 07:50:35 CDT by Diallo Atkinson
[2020-09-22] MEDS ORDERED: CETIRIZINE HCL 5 MG TABLET PO PRN (07:57)
[2020-09-22] MEDS ORDERED: INSULIN -REGULAR HUMAN 50 UNIT/0.5 ML ML ONE (08:11)
[2020-09-22] MEDS ORDERED: GLIMEPIRIDE 2 MG TABLET PO SCH (08:15)
[2020-09-22] MEDS ORDERED: ASPIRIN 325 MG TAB ONE (08:30)
[2020-09-22] MEDS ORDERED: METOPROLOL XL 50 MG TAB PO ONE (08:30)
[2020-09-22] MEDS ORDERED: CETIRIZINE HCL 5 MG TABLET ONE (08:30)
[2020-09-22] MEDS ORDERED: GABAPENTIN 300 MG CAP ONE (08:31)
[2020-09-22] MEDS ORDERED: AMLODIPINE 5 MG TAB ONE (08:31)
[2020-09-22] MEDS ORDERED: METFORMIN HCL 500 MG TAB ONE (08:31)
[2020-09-22] MEDS ORDERED: lisinopriL 20 MG TAB ONE (08:31)
[2020-09-22] MEDS ORDERED: PREGABALIN 75 MG CAP PO ONE (08:31)
[2020-09-22] MEDS ORDERED: CLOPIDOGREL 75 MG TABLET ONE (08:31)
[2020-09-22] MEDS ORDERED: AMLODIPINE 5 MG TAB PO SCH (09:00)
[2020-09-22] MEDS ORDERED: lisinopriL 20 MG TAB PO SCH (09:00)
[2020-09-22] MEDS ORDERED: METOPROLOL XL 50 MG TAB PO SCH (09:00)
[2020-09-22] MEDS ORDERED: CLOPIDOGREL 75 MG TABLET PO SCH (09:00)
[2020-09-22] MEDS ORDERED: ASPIRIN EC 325 MG TABLET PO SCH (09:00)
[2020-09-22] MEDS ORDERED: ISOSORBIDE MONO SR 30 MG TAB PO SCH (09:00)
[2020-09-22] MEDS ORDERED: GABAPENTIN 300 MG CAP PO SCH (09:00)
[2020-09-22] MEDS ORDERED: PREGABALIN 150 MG CAP PO SCH (09:00)
[2020-09-22 12:13] VITALS: BP 137/74
--- NOTE | 2020-09-22 13:45 | RAD REPORT ---
EXAM DESCRIPTION: CT - Head Brain Wo Cont - 09/22/2020 1:36 pm CLINICAL HISTORY: Post tPA. Headache, drowsiness COMPARISON: Ct Stroke Brain Wo Cont dated 09/21/2020 TECHNIQUE: All CT scans are performed using dose optimization technique as appropriate and may inclu de automated exposure control or mA/KV adjustment according to patient size. FINDINGS: No intracranial hemorrhage, hydrocephalus or extra-axial fluid collection.No areas of brai n edema or evidence of midline shift. The paranasal sinuses and mastoids are clear. The calvarium is intact. IMPRESSION: No acute intracranial abnormality.
--- NOTE | 2020-09-22 14:12 | P.DS ---
Admission Date: 09/21/20 Discharge Date: 09/22/20 Disposition: ROUTINE DISCHARGE Discharge Condition: FAIR Reason for Admission: Left facial\arm Numbness\Tingling Consultations: Neurology-Dr. Alcaraz - Problems (1) TIA (transient ischemic attack) Current Visit: Yes Status: Acute (2) CAD (coronary artery disease) Current Visit: Yes Status: Acute (3) DM type 2 (diabetes mellitus, type 2) Current Visit: Yes Status: Acute (4) Acute worsening of stage 3 chronic kidney disease Current Visit: Yes Status: Acute Brief History of Present Illness: 55-year-old man with a history of coronary artery disease, hypertension, diabetes mellitus presented to the emergency department due to sudden onset left-sided numbness and tingling sensation, associated left-sided weakness visual changes and dizziness. Head CT done in the emergency department did not show any acute stroke. Patient was within the window for t-PA and therefore was given tPA and admitted for further management. Hospital Course: Patient neurologic symptoms resolved in the ED. MRI of the brain reported punctate hyperintense focus at the basal ganglia left cerebral peduncle junction suggestive of infarction. Patient blood sugar noted to be elevated. Hemoglobin A1c up to 9.5. Patient seen and evaluated by neurology. He is on dual antiplatelet therapy. Patient placed on folic acid. He is considered stable for discharge per neurology. He will follow up with Dr. Alcaraz in the office within 1 month. Vital Signs/Physical Exam: Temp Pulse Resp BP Pulse Ox 98.0 F 79 18 137/74 99 09/22/20 07:34 09/22/20 12:00 09/22/20 12:00 09/22/20 12:00 09/22/20 12:00 General: Alert, In no apparent distress, Oriented x3 HEENT: Mucous membr. moist/pink Neck: 2+ carotid pulse no bruit, JVD not distended Respiratory: Clear to auscultation bilaterally, Normal air movement Cardiovascular: No edema, Normal S1 S2 Gastrointestinal: Soft and benign, Non-distended, No tenderness Musculoskeletal: No swelling, No tenderness Integumentary: No rashes, No erythema Neurological: Normal speech, Normal strength at 5/5 x4 extr Laboratory Data at Discharge: WBC 8.70 K/uL (4.3-10.9) D 09/22/20 05:23 Hgb 14.3 g/dL (13.6-17.9) 09/22/20 05:23 Hct 41.6 % (39.6-49.0) 09/22/20 05:23 Plt Count 194 K/uL (152-406) 09/22/20 05:23 PT 10.2 SECONDS (9.5-12.5) 09/22/20 05:23 INR 0.89 09/22/20 05:23 APTT 30.0 SECONDS (24.3-36.9) 09/21/20 15:04 Sodium 140 mmol/L (136-145) 09/22/20 05:23 Potassium 4.2 mmol/L (3.5-5.1) 09/22/20 05:23 BUN 44 mg/dL (7-18) H 09/22/20 05:23 Creatinine 1.76 mg/dL (0.55-1.3) H 09/22/20 05:23 Glucose 258 mg/dL (74-106) H 09/22/20 05:23 Home Medications: Amlodipine [Norvasc*] 5 mg PO DAILY 09/21/20 Aspirin [Aspirin EC 325 MG] 325 mg PO DAILY 09/21/20 Clopidogrel Bisulfate [Plavix] 75 mg PO DAILY 09/21/20 Gabapentin 600 mg PO TID 09/21/20 Glimepiride 4 mg PO BID 09/21/20 Isosorbide Mononitrate [Isosorbide Mononitrate ER] 30 mg PO DAILY 09/21/20 Lisinopril [Zestril] 20 mg PO DAILY 09/21/20 Metformin HCl 1,000 mg PO BID 09/21/20 Metoprolol Succinate 50 mg PO DAILY 09/21/20 Pregabalin 150 mg PO BID 09/21/20 Simvastatin 80 mg PO BEDTIME 09/21/20 Varenicline Tartrate [Chantix] 0.5 mg PO BEDTIME 09/21/20 Cetirizine HCl [Zyrtec*] 10 mg PO DAILY PRN #10 tablet 09/22/20 Folic Acid 1 mg PO DAILY #30 tablet 09/22/20 New Medications: Folic Acid 1 mg PO DAILY #30 tablet Cetirizine HCl [Zyrtec*] 10 mg PO DAILY PRN #10 tablet PRN Reason: Allergies Diet: ADA Activity: Ad diann Followup: OOT,OOT [Primary Care Provider] - Alex Alcaraz MD [ASSOCIATE-ACTIVE - CAN ADMIT] - (within 1 month.)
--- NOTE | 2020-09-22 19:11 | CON ---
Reason For Consultation: Consultation called because of possible stroke. History Of Present Illness: Mr. Smith is a 55-year-old right-handed patient, who is known to [facility] with left face, arm, and leg numbness and weakness. The event occurred on 09/21/2020 at 12 noon. He came to [facility], arrived at 2:31 p.m., and had a head CT scan at 2:47 p.m. The study showed no acute ischemic or hemorrhagic stroke, and the patient had no contraindications t o tissue plasminogen activator and he did receive a tPA in the emergency room. After he was evaluate d and cleared at 3:05, the tPA was initiated after approval. The patient received tPA. His NIH Stro ke Scale at 3:10 was 2, at 3:51 and at 4:17, it was 3; however, the patient did say within about an h our of treatment onset, he had returned completely back to his normal self and denied persistent symp toms of left arm, face, or leg numbness or weakness. He did have a repeat head CT scan done today. This study showed no hemorrhagic conversion and there was no acute ischemic or hemorrhagic change zena ntified. It is to be noted his brain MRI did identify a punctate area of about 1 mm hyperintense sig nal in the inferior basal ganglia at cerebral peduncle junction, however, there was questionable yolanda elation on the ADC mapping sequence. The patient did have scattered small-vessel ischemic disease, b ut it is noted that this would not explain the patient's left-sided symptoms. His blood work showed negative COVID-19 testing. RPR was nonreactive. Complete blood count with differential essentially normal. Coagulation panel was normal. He does have a stroke workup pending including protein C, pro tein S, antithrombin III, and factor V Leiden. His blood sugars were very uncontrolled up to 458. Y esterday, hemoglobin A1c of 9.5, creatinine 1.76. Serum folate was 19.8, vitamin D was very low at 1 6.7, and his protein electrophoresis is pending. His chest x-ray showed no acute cardiopulmonary iss ues and electrocardiogram showed normal sinus rhythm, is a normal study. Past Medical History: Hypertension, [id number] diabetes mellitus, dyslipidemia. Allergies: PENICILLIN. Medications: Metformin 1000 mg 2 tablets twice daily, lisinopril 20 mg daily, amlodipine 5 mg daily, metoprolol 50 mg daily, simvastatin 40 mg nightly, glimepiride 4 mg daily, Lyrica 150 mg daily, Plav ix 75 mg daily, gabapentin 600 mg daily, isosorbide 30 mg daily, Chantix 0.5 mg daily, aspirin 325 mg daily. Family History: Noncontributory. Past Surgical History: Status post angioplasty. Review of Systems: The patient denies any recent fevers, chills, nausea, vomiting, myalgias, arthralgias, headache, weig ht change, rash, psychiatric complaints, gastrointestinal issues, or genitourinary issues. Physical Examination: Vital Signs: Blood pressure 137/74, pulse 79, respiratory rate 18, temperature 98, oxygen saturation 99% on room air. Weight 279 pounds. Height 6 feet 1 inch. BMI 36.8. General: Mr. Smith is resting in bed. He is in no acute distress. HEENT: He is normocephalic, atraumatic. Sclerae anicteric. Oropharynx is pink and moist. Neck: Supple. Chest: Clear. Heart: Regular. Extremities: No clubbing, cyanosis, or edema. Neurological: Cranial nerves 2 through 12 intact by exam. Motor in the upper and lower extremities intact by exam. Sensory exam intact in the upper and lower extremities except for mild stocking-glov e loss to light touch and temperature. Reflexes 1 to 2+ in the upper and lower extremities and symme tric. Coordination intact in the upper and lower extremities. Gait intact with no abnormalities zena ntified. Assessment: Mr. Smith is a 55-year-old patient with a possible stroke that actually was treated with tPA and he has resolution of his symptoms, so a normal premorbid state. He does have uncontrolled d iabetes and hypertension along with dyslipidemia and he is on antiplatelet medications. He is on mul tiple medications for diabetes mellitus and on antihypertensive medications. Those should be continu ed. He may be discharged home and follow up with Dr. Alcaraz's clinic in 1 month. The importance of letha nging his diet, his hydration, his activity level such as exercise and rests were all discussed with the patient and again may be discharged at this point. CORTEZ/HILL Voice ID: [id number] Report ID: [id number]
[2020-09-22] MEDS ORDERED: HOME MED 1 EA UNK (Simvastatin [Simvastatin] 80 MG Tablet) PO SCH (21:00)
[2020-09-22] MEDS ORDERED: VARENICLINE TARTRATE 0.5 MG PO SCH (21:00)
[2020-09-23 06:40] VITALS: O2SAT 99
[2020-09-26 19:43] LABS: Prothrombin Gene Analysis Test REPORT
[2020-09-26 20:57] LABS: Albumin, (SPE) 3.5 g/dL (3.8-4.8); Alpha-1-Globulins 0.3 g/dL (0.2-0.3); Alpha-2-Globulins 0.9 g/dL (0.5-0.9); Gamma Globulins 0.4 g/dL (0.8-1.7); INTERPRETATION REPORT
[2020-09-28 12:49] LABS: Protein C Antigen 110 % (70-140)
== END 2020-09-22 15:22 | disposition home or self-care (01) ==
LOC: ER 14:30 → OBSVTOIN 19:33 → INTOOBSV 19:33 → ERHOLD 19:33
PROVIDERS: ADMIT Internal Medicine; ATTEND Internal Medicine
DX: G45.9 Transient cerebral ischemic attack, unspecified (principal); I25.10 Atherosclerotic heart disease of native coronary artery without angina pectoris; E11.22 Type 2 diabetes mellitus with diabetic chronic kidney disease; I12.9 Hypertensive chronic kidney disease with stage 1 through stage 4 chronic kidney disease, or unspecified chronic kidney disease; N18.30 Chronic kidney disease, stage 3 unspecified; Z20.822 Contact with and (suspected) exposure to COVID-19; Z95.5 Presence of coronary angioplasty implant and graft; E78.5 Hyperlipidemia, unspecified; E11.40 Type 2 diabetes mellitus with diabetic neuropathy, unspecified; E66.9 Obesity, unspecified; Z79.84 Long term (current) use of oral hypoglycemic drugs; F17.210 Nicotine dependence, cigarettes, uncomplicated; E11.65 Type 2 diabetes mellitus with hyperglycemia
CPT/HCPCS: 36415; 70450; 70551; 71045; 80048; 81240; 81241; 82306; 82607; 82746; 82947; 83036; 83090; 84165; 85025; 85300; 85302; 85305; 85306; 85610; 85730; 86021; 86147; 86592; 92977; 93005; 97116; 97162; 99291; J2997; J7030; U0003